=== PATIENT | female | born 1995 ===

== ENCOUNTER 2021-05-01 07:46 | Emergency (ER) | payer OTHER, SELFPAY ==
[2021-05-01 07:50] VITALS: BP 114/64; PULSE 79; RESP 18; TEMP 36.6; O2SAT 96; BMI 33.0
--- NOTE | 2021-05-01 08:06 | ED.BACK ---
HPI - Back Pain/Injury General Chief Complaint: Back Pain/Injury Stated Complaint: back pain Time Seen by Provider: 05/01/21 07:57 Source: patient Mode of arrival: ambulatory Limitations: no limitations History of Present Illness MD elicited complaint: back pain and other (neck pain) Pertinent past history: prior back pain and other (heavy lifting and repetitive job movements) Onset (ago): day(s) (yesterday at work) Timing: constant and progressively worsening Severity: severe Similar Symptoms Previously: Yes Quality: stabbing and spasming Location: thoracic spine (upper and cervical spine) Radiation: other (shoulders) Exacerbating factors: movement Relieving factors: none Context: other (woke up this way but felt it at work ) Associated symptoms: denies other symptoms Work related injury: Yes Related Data Previous Rx's Medication Instructions Recorded diazepam [Valium] 5 mg PO TID PRN #10 tab 05/01/21 ibuprofen 600 mg PO Q6H PRN #30 tab 05/01/21 lidocaine 1 patch TOPICAL DAILY PRN #10 ea 05/01/21 Allergies Allergy/AdvReac Type Severity Reaction Status Date / Time aluminum hydroxide Allergy Intermediate HIVES Unverified 07/24/20 16:11 [From MYLANTA] calcium carbonate Allergy Intermediate HIVES Unverified 07/24/20 16:11 [From MYLANTA] magnesium Allergy Intermediate HIVES Unverified 07/24/20 16:11 [From MILK OF MAGNESIA] magnesium hydroxide Allergy Intermediate HIVES Unverified 07/24/20 16:11 [From MILK OF MAGNESIA] simethicone [From MYLANTA] Allergy Intermediate HIVES Unverified 07/24/20 16:11 Milk of Magnesia Allergy Unknown Uncoded 03/09/16 00:00 mylanta Allergy Unknown hives Uncoded 09/12/12 00:00 Review of Systems Review of Systems: Constitutional : No Weight loss, No Fever, No Chills, ENT/Mouth : No Hearing loss, No Ear Pain, No Nasal Congestion, No Sinus Pain, No Hoarseness, No sore throat, No Rhinorrhea, No Swallowing Difficulty Cardiovascular : No Chest Pain, No SOB Respiratory : No Cough, No Dyspnea Gastrointestinal : No Nausea, No Vomiting, No Diarrhea, No abdominal Pain, No Hematochezia, No Melena Genitourinary : No Dysuria, No Urinary Frequency, No Hematuria, No Urinary Incontinence, Musculoskeletal : positive back pain, pos neck pain Skin : No Skin Lesions, No rash Neuro : No Weakness, No Numbness, No Paresthesias, no loss of bowel or bladder incontinence, no saddle anesthesia [facility] Past Medical History Attestation statement: The following information was validated with the patient. Medical History Neck pain Social History Social History Alcohol intake: current Patient Tobacco Use Status: Current everyday Tobacco user Use of substances other than those prescribed or required for medical reasons: No Advance Directives: Yes Advance Directives Information Provided: No Advance Directives on File: No Patient : No Physical Exam Vital Signs: Vital Signs: Last Vital Signs Temp 98 F 05/01/21 07:50 Pulse 79 05/01/21 07:50 Resp 18 05/01/21 07:50 BP 114/64 05/01/21 07:50 Pulse Ox 96 05/01/21 07:50 Body Mass Index 33.0 Appearance: Alert. Oriented X3. No acute distress. Eyes: Pupils equal, round and reactive to light. ENT: Pharynx normal. Neck: spasm in bilateral trapezius, neck is stiff distal NV intact CVS: Normal heart rate and rhythm. Pulses normal. Respiratory: No respiratory distress. Breath sounds normal. Abdomen: Soft and non-tender. Skin: Skin warm and dry. Normal skin color. Normal skin turgor. Extremities: No lower extremity edema. No calf ttp Neuro: Oriented X 3. No motor deficit. No sensory deficit. MDM - Back Pain/Injury MDM Narrative Medical decision making narrative: 25 yo female with prior neck pain works at [employer] here with neck pain and spasm after waking up, she is NV intact, no trauma doubt fracture at this time will need valium, IM toradol, lidocaine patches and work note, dispo per improvement Discharge Plan Discharge Clinical Impression: Acute neck pain, Trapezius muscle spasm Patient Disposition: Home, Self-Care Instructions: Muscle Spasm (ED) Additional Instructions: return to ED for any worsening symptoms or concerns Prescriptions: New lidocaine 4 % adhesive patch,medicated 1 patch topical DAILY PRN (Reason: pain) Qty: 10 RF: 0 ibuprofen 600 mg tablet 600 mg PO Q6H PRN (Reason: pain) Qty: 30 RF: 0 diazepam [Valium] 5 mg tablet 5 mg PO TID PRN (Reason: muscle spasm) Qty: 10 RF: 0 Referrals: Physician,None [Primary Care Provider] - 2 days (if not better follow up with PCP on Tuesday) Stand Alone Forms: Work/School Release
[2021-05-01] MEDS: Ketorolac Tromethamine 60 MG/2 ML VIAL IM (08:17)
[2021-05-01] MEDS: Lidocaine 4 % Patch ADH..PATCH 2 PATCH TRANSDERMA (08:23)
--- NOTE | 2021-05-01 08:28 | PC.NURSE ---
Patient refused valium due to her driving.
== END 2021-05-01 08:42 | disposition home or self-care (01) ==
PROVIDERS: Emergency Provider Emergency Medicine
DX: M54.2 Cervicalgia (principal); M62.838 Other muscle spasm
CPT/HCPCS: 96372; 99284; J1885

== ENCOUNTER 2021-06-02 21:43 | Emergency (ER) | payer OTHER, SELFPAY ==
[2021-06-02 22:07] VITALS: BP 99/73; PULSE 81; RESP 16; TEMP 36.7; O2SAT 98; BMI 33.0
--- NOTE | 2021-06-03 00:15 | ED_ITS ---
HPI - Nausea/Vomiting/Diarrhea General Chief complaint: Nausea/Vomiting/Diarrhea <LINDA Alberto Last Filed: 06/03/21 01:56> Stated complaint: vomitting <LINDA Alberto Last Filed: 06/03/21 01:56> Time Seen by Provider: 06/02/21 21:55 <LINDA Alberto Last Filed: 06/03/21 01:56> Source: patient and family <LINDA Alberto Last Filed: 06/03/21 01:56> Mode of arrival: ambulatory <LINDA Alberto Last Filed: 06/03/21 01:56> Limitations: no limitations <LINDA Alberto Last Filed: 06/03/21 01:56> History of Present Illness HPI Narrative: 25 y/o female with no medical history presents to the ER from home c/o a day of nausea, vomiting and watery diarrhea. She reports since 4 am she has been vomiting and having multiple episodes of diarrhea. Every time she eats she vomits. She denies fever, chills, sick contacts or possible food bourne illness. She reports epigastric burning and the last few times she vomited it was all bile acid. She denies chance of . Denies any blood in her vomit or stool. She denies chance of . <LINDA Alberto Last Filed: 06/03/21 01:56> MD elicited complaint: nausea, vomiting and diarrhea <LINDA Alberto Last Filed: 06/03/21 01:56> Onset (ago): day(s) (1) <LINDA Alberto Last Filed: 06/03/21 01:56> Description of vomiting: bilious <LINDA Alberto Last Filed: 06/03/21 01:56> Description of diarrhea: watery and loose <LINDA Alberto Last Filed: 06/03/21 01:56> Associated nausea: Yes <LINDA Alberto Last Filed: 06/03/21 01:56> Associated abdominal pain: Yes <LINDA Alberto Last Filed: 06/03/21 01:56> Location of pain: epigastric <LINDA Alberto Last Filed: 06/03/21 01:56> Pain consistency: intermittent <LINDA Alberto Last Filed: 06/03/21 01:56> Severity: moderate <LINDA Alberto Last Filed: 06/03/21 01:56> Quality: aching and other (burning) <LINDA Alberto Last Filed: 06/03/21 01:56> Exacerbating factors: eating and vomiting <LINDA Alberto Last Filed: 06/03/21 01:56> Relieving factors: none <LINDA Alberto Last Filed: 06/03/21 01:56> Associated symptoms: nausea/vomiting <LINDA Alberto Last Filed: 06/03/21 01:56> Related Data Home medications: Previous Rx's Medication Instructions Recorded diazepam [Valium] 5 mg PO TID PRN #10 tab 05/01/21 ibuprofen 600 mg PO Q6H PRN #30 tab 05/01/21 lidocaine 1 patch TOPICAL DAILY PRN #10 ea 05/01/21 ondansetron 4 mg PO Q8H PRN #7 tab 06/03/21 <LINDA Alberto Last Filed: 06/03/21 01:56> Allergies/Adverse reactions: Allergies Allergy/AdvReac Type Severity Reaction Status Date / Time aluminum hydroxide Allergy Intermediate HIVES Verified 06/02/21 22:13 [From MYLANTA] calcium carbonate Allergy Intermediate HIVES Verified 06/02/21 22:13 [From MYLANTA] magnesium Allergy Intermediate HIVES Verified 06/02/21 22:13 [From MILK OF MAGNESIA] magnesium hydroxide Allergy Intermediate HIVES Verified 06/02/21 22:13 [From MILK OF MAGNESIA] simethicone [From MYLANTA] Allergy Intermediate HIVES Verified 06/02/21 22:13 Milk of Magnesia Allergy Unknown Hives Uncoded 06/02/21 22:13 mylanta Allergy Unknown hives Uncoded 06/02/21 22:13 <LINDA Alberto Last Filed: 06/03/21 01:56> Review of Systems Review of Systems: Constitutional: No Fever, No Chills ENT/Mouth: No sore throat, No Rhinorrhea, No Swallowing Difficulty Eyes: No Eye Pain, No Swelling, No Redness Cardiovascular: No Chest Pain, No SOB, No Orthopnea, No Edema Respiratory: No Cough, No Sputum, No Wheezing, No dyspnea Gastrointestinal: + Nausea, + Vomiting, + Diarrhea, + abdominal Pain, No Hematochezia, No Melena Genitourinary: No Dysuria, No Urinary Frequency, No Hematuria Musculoskeletal: No joint pain, No Myalgias Skin: No Skin Lesions, No rash Neuro: No Weakness, No Numbness, No Dizziness, No Headache Psych: No Anxiety/Panic, No Depression Heme/Lymph: No Bruising, No Lymphadenopathy Endocrine: No Polyuria, No Polydipsia <LINDA Alberto - Last Filed: 06/03/21 01:56> Gastrointestinal: Gastrointestinal: Reports nausea <LINDA Alberto Last Filed: 06/03/21 01:56> [facility] Past Medical History Attestation statement: The following information was validated with the patient. <LINDA Alberto Last Filed: 06/03/21 01:56> Medical History: Medical History Back injury Neck pain Right foot injury <LINDA Alberto Last Filed: 06/03/21 01:56> Social History Social History: Social History Alcohol intake: current Patient Tobacco Use Status: Current everyday Tobacco user Advance Directives: No Advance Directives Information Provided: No Patient : No <LINDA Alberto Last Filed: 06/03/21 01:56> Physical Exam Vital Signs: Vital Signs: Last Vital Signs Temp 98.1 F 06/02/21 22:07 Pulse 81 06/02/21 22:07 Resp 18 06/03/21 01:34 BP 102/57 L 06/03/21 01:34 Pulse Ox 98 06/03/21 01:34 Body Mass Index 33.0 Appearance: Alert. Oriented X3. No acute distress. Eyes: Pupils equal, round and reactive to light. ENT: Pharynx normal. Neck: Normal inspection. Neck supple. CVS: Normal heart rate and rhythm. Pulses normal. Respiratory: No respiratory distress. Breath sounds normal. Abdomen: Soft with mild epigastric tenderness, no rebound or guarding. +BS x4 Skin: Skin warm and dry. Normal skin color. Normal skin turgor. No rashes. Extremities: No lower extremity edema. Neuro: Oriented X 3. No motor deficit. No sensory deficit. <LINDA Alberto - Last Filed: 06/03/21 01:56> Vital Signs: Last Vital Signs Temp 98.1 F 06/02/21 22:07 Pulse 81 06/02/21 22:07 Resp 18 06/03/21 01:34 BP 102/57 L 06/03/21 01:34 Pulse Ox 98 06/03/21 01:34 Body Mass Index 33.0 <Janis Bell MD - Last Filed: 06/03/21 02:41> Course Course Course Narrative: 25 y/o female presenting with 1 day of N/V/D and epigastric abdominal pain. No RLQ or RUQ tenderness, doubt acute appendicitis or cholecystitis. Cli nical presentation is most consistent with gastroenteritis. Will check basic labs, UA, utox, and Upreg. IVF and Zofran ordered. <LINDA Alberto - Last Filed: 06/03/21 01:56> Follow-up on urine studies to ensure patient did not have a contributing UTI or . Both were negative and patient was discharged home in stable condition. <Janis Bell MD - Last Filed: 06/03/21 02:41> Reevaluation(s) Reevaluation #1: WBC 11.2, likely reactive from vomiting. None since arrival to the ED. Patient feels significantly better after IVF and Zofran. She is now tolerating mily tani. UA and Upreg pending, once resulted will d/c home. patient and mom agree with plan. <LINDA Alberto - Last Filed: 06/03/21 01:56> MDM - Nausea/Vomiting/Diarrhea Lab Data Result diagrams: : 06/03/21 01:06 06/03/21 01:06 <LINDA Alberto - Last Filed: 06/03/21 01:56> Labs: Lab Results 06/03/21 06/03/21 06/03/21 Range/Units 01:06 01:06 02:28 WBC 11.2 H (4.8-10.8) X10*3/uL RBC 4.25 (4.20-5.50) X10*6/uL Hgb 13.3 (12.0-16.0) g/dl Hct 39.1 (37-47) % MCV 92.0 (80-98) fL MCH 31.3 (27.0-33.0) pg MCHC 34.0 (31.0-35.0) g/dl RDW 12.3 (11.0-16.0) % Plt Count 330 (160-400) X10*3/uL MPV 8.6 L (9.4-12.3) fL Immature Gran % (Auto) 0.4 (0.0-0.4) % Neut % (Auto) 79.8 H (45-73) % Lymph % (Auto) 13.6 L (20-40) % Schleicher % (Auto) 5.4 (2-11) % Eos % (Auto) 0.7 (0-4) % Baso % (Auto) 0.1 (0-2) % Lymph # (Auto) 1.5 (1.2-4.9) X10*3/uL Schleicher # (Auto) 0.6 (0.1-1.2) X10*3/uL Eos # (Auto) 0.1 (0.0-0.4) X10*3/uL Baso # (Auto) 0.0 (0.0-0.2) X10*3/uL Abs Immat Gran (auto) 0.04 H (0.00-0.03) X10*3/uL Absolute Neuts (auto) 9.0 H (2.0-8.3) X10*3/uL Absolute Nucleated RBC 0.000 (0.0-0.012) X10*3/uL Nucleated RBC % (auto) 0.0 (0.0-0.2) /100WBC Sodium 135 (135-145) mmol/L Potassium 3.9 (3.3-5.1) mmol/L Chloride 104 (96-108) mmol/L Carbon Dioxide 22 (22-29) mmol/L Anion Gap 13 (12-20) BUN 14 (9-16) mg/dL Creatinine 0.82 (0.5-1.4) mg/dL Estim Creat Clear Calc 98.3 Estimated GFR > 60 Random Glucose 96 (60-115) mg/dL Calcium 9.8 (8.4-10.2) mg/dL Total Bilirubin 0.7 (0.0-1.0) mg/dL Direct Bilirubin 0.2 (0.0-0.5) mg/dL AST 17 (5-31) U/L ALT 8 (0-31) U/L Alkaline Phosphatase 75 (39-117) U/L Total Protein 7.8 (6.5-8.0) g/dL Albumin 4.5 (3.5-5.0) g/dL Urine Color YELLOW Urine Appearance CLEAR Urine pH 6.0 (5.0-8.0) Ur Specific [place] >= 1.030 H (1.005-1.025) Urine Protein NEG (NEG-TRACE) MG/DL Urine Glucose (UA) NEG (NEG) MG/DL Urine Ketones 40 (NEG) MG/DL Urine Blood NEG (NEG) Urine Nitrite NEG (NEG) Ur Leukocyte Esterase NEG (NEG) Urine Test (NEGATIVE) 06/03/21 Range/Units 02:28 WBC (4.8-10.8) X10*3/uL RBC (4.20-5.50) X10*6/uL Hgb (12.0-16.0) g/dl Hct (37-47) % MCV (80-98) fL MCH (27.0-33.0) pg MCHC (31.0-35.0) g/dl RDW (11.0-16.0) % Plt Count (160-400) X10*3/uL MPV (9.4-12.3) fL Immature Gran % (Auto) (0.0-0.4) % Neut % (Auto) (45-73) % Lymph % (Auto) (20-40) % Schleicher % (Auto) (2-11) % Eos % (Auto) (0-4) % Baso % (Auto) (0-2) % Lymph # (Auto) (1.2-4.9) X10*3/uL Schleicher # (Auto) (0.1-1.2) X10*3/uL Eos # (Auto) (0.0-0.4) X10*3/uL Baso # (Auto) (0.0-0.2) X10*3/uL Abs Immat Gran (auto) (0.00-0.03) X10*3/uL Absolute Neuts (auto) (2.0-8.3) X10*3/uL Absolute Nucleated RBC (0.0-0.012) X10*3/uL Nucleated RBC % (auto) (0.0-0.2) /100WBC Sodium (135-145) mmol/L Potassium (3.3-5.1) mmol/L Chloride (96-108) mmol/L Carbon Dioxide (22-29) mmol/L Anion Gap (12-20) BUN (9-16) mg/dL Creatinine (0.5-1.4) mg/dL Estim Creat Clear Calc Estimated GFR Random Glucose (60-115) mg/dL Calcium (8.4-10.2) mg/dL Total Bilirubin (0.0-1.0) mg/dL Direct Bilirubin (0.0-0.5) mg/dL AST (5-31) U/L ALT (0-31) U/L Alkaline Phosphatase (39-117) U/L Total Protein (6.5-8.0) g/dL Albumin (3.5-5.0) g/dL Urine Color Urine Appearance Urine pH (5.0-8.0) Ur Specific [place] (1.005-1.025) Urine Protein (NEG-TRACE) MG/DL Urine Glucose (UA) (NEG) MG/DL Urine Ketones (NEG) MG/DL Urine Blood (NEG) Urine Nitrite (NEG) Ur Leukocyte Esterase (NEG) Urine Test NEGATIVE (NEGATIVE) <LINDA Alberto - Last Filed: 06/03/21 01:56> Lab Results 06/03/21 06/03/21 06/03/21 Range/Units 01:06 01:06 02:28 WBC 11.2 H (4.8-10.8) X10*3/uL RBC 4.25 (4.20-5.50) X10*6/uL Hgb 13.3 (12.0-16.0) g/dl Hct 39.1 (37-47) % MCV 92.0 (80-98) fL MCH 31.3 (27.0-33.0) pg MCHC 34.0 (31.0-35.0) g/dl RDW 12.3 (11.0-16.0) % Plt Count 330 (160-400) X10*3/uL MPV 8.6 L (9.4-12.3) fL Immature Gran % (Auto) 0.4 (0.0-0.4) % Neut % (Auto) 79.8 H (45-73) % Lymph % (Auto) 13.6 L (20-40) % Schleicher % (Auto) 5.4 (2-11) % Eos % (Auto) 0.7 (0-4) % Baso % (Auto) 0.1 (0-2) % Lymph # (Auto) 1.5 (1.2-4.9) X10*3/uL Schleicher # (Auto) 0.6 (0.1-1.2) X10*3/uL Eos # (Auto) 0.1 (0.0-0.4) X10*3/uL Baso # (Auto) 0.0 (0.0-0.2) X10*3/uL Abs Immat Gran (auto) 0.04 H (0.00-0.03) X10*3/uL Absolute Neuts (auto) 9.0 H (2.0-8.3) X10*3/uL Absolute Nucleated RBC 0.000 (0.0-0.012) X10*3/uL Nucleated RBC % (auto) 0.0 (0.0-0.2) /100WBC Sodium 135 (135-145) mmol/L Potassium 3.9 (3.3-5.1) mmol/L Chloride 104 (96-108) mmol/L Carbon Dioxide 22 (22-29) mmol/L Anion Gap 13 (12-20) BUN 14 (9-16) mg/dL Creatinine 0.82 (0.5-1.4) mg/dL Estim Creat Clear Calc 98.3 Estimated GFR > 60 Random Glucose 96 (60-115) mg/dL Calcium 9.8 (8.4-10.2) mg/dL Total Bilirubin 0.7 (0.0-1.0) mg/dL Direct Bilirubin 0.2 (0.0-0.5) mg/dL AST 17 (5-31) U/L ALT 8 (0-31) U/L Alkaline Phosphatase 75 (39-117) U/L Total Protein 7.8 (6.5-8.0) g/dL Albumin 4.5 (3.5-5.0) g/dL Urine Color YELLOW Urine Appearance CLEAR Urine pH 6.0 (5.0-8.0) Ur Specific [place] >= 1.030 H (1.005-1.025) Urine Protein NEG (NEG-TRACE) MG/DL Urine Glucose (UA) NEG (NEG) MG/DL Urine Ketones 40 (NEG) MG/DL Urine Blood NEG (NEG) Urine Nitrite NEG (NEG) Ur Leukocyte Esterase NEG (NEG) Urine Test (NEGATIVE) 06/03/21 Range/Units 02:28 WBC (4.8-10.8) X10*3/uL RBC (4.20-5.50) X10*6/uL Hgb (12.0-16.0) g/dl Hct (37-47) % MCV (80-98) fL MCH (27.0-33.0) pg MCHC (31.0-35.0) g/dl RDW (11.0-16.0) % Plt Count (160-400) X10*3/uL MPV (9.4-12.3) fL Immature Gran % (Auto) (0.0-0.4) % Neut % (Auto) (45-73) % Lymph % (Auto) (20-40) % Schleicher % (Auto) (2-11) % Eos % (Auto) (0-4) % Baso % (Auto) (0-2) % Lymph # (Auto) (1.2-4.9) X10*3/uL Schleicher # (Auto) (0.1-1.2) X10*3/uL Eos # (Auto) (0.0-0.4) X10*3/uL Baso # (Auto) (0.0-0.2) X10*3/uL Abs Immat Gran (auto) (0.00-0.03) X10*3/uL Absolute Neuts (auto) (2.0-8.3) X10*3/uL Absolute Nucleated RBC (0.0-0.012) X10*3/uL Nucleated RBC % (auto) (0.0-0.2) /100WBC Sodium (135-145) mmol/L Potassium (3.3-5.1) mmol/L Chloride (96-108) mmol/L Carbon Dioxide (22-29) mmol/L Anion Gap (12-20) BUN (9-16) mg/dL Creatinine (0.5-1.4) mg/dL Estim Creat Clear Calc Estimated GFR Random Glucose (60-115) mg/dL Calcium (8.4-10.2) mg/dL Total Bilirubin (0.0-1.0) mg/dL Direct Bilirubin (0.0-0.5) mg/dL AST (5-31) U/L ALT (0-31) U/L Alkaline Phosphatase (39-117) U/L Total Protein (6.5-8.0) g/dL Albumin (3.5-5.0) g/dL Urine Color Urine Appearance Urine pH (5.0-8.0) Ur Specific [place] (1.005-1.025) Urine Protein (NEG-TRACE) MG/DL Urine Glucose (UA) (NEG) MG/DL Urine Ketones (NEG) MG/DL Urine Blood (NEG) Urine Nitrite (NEG) Ur Leukocyte Esterase (NEG) Urine Test NEGATIVE (NEGATIVE) <Janis Bell MD - Last Filed: 06/03/21 02:41> Critical Care Time Critical Care Time Critical Care Time: No <LINDA Alberto - Last Filed: 06/03/21 01:56> Discharge Plan Discharge Clinical Impression: Gastroenteritis <LINDA Alberto - Last Filed: 06/03/21 01:56> Patient Disposition: Home, Self-Care <LINDA Alberto - Last Filed: 06/03/21 01:56> Instructions: Gastroenteritis (ED) <LINDA Alberto - Last Filed: 06/03/21 01:56> Additional Instructions: Your lab workup today was unremarkable. Your symptoms are most likely due to gastroenteritis. Take the prescribed medication as needed for nausea. Recommend trial of over the counter Pepto Bismol or Imodium for upset stomach and diarrhea. Stick to a bland diet while you are not feeling well. Follow up with your doctor as needed. If you develop new or worsening symptoms call 911 or come back to the ER for further evaluation. <LINDA Alberto - Last Filed: 06/03/21 01:56> Prescriptions: New ondansetron 4 mg tablet,disintegrating 4 mg PO Q8H PRN (Reason: nausea and vomiting) Qty: 7 RF: 0 No Action lidocaine 4 % adhesive patch,medicated 1 patch topical DAILY PRN (Reason: pain) Qty: 10 RF: 0 ibuprofen 600 mg tablet 600 mg PO Q6H PRN (Reason: pain) Qty: 30 RF: 0 diazepam [Valium] 5 mg tablet 5 mg PO TID PRN (Reason: muscle spasm) Qty: 10 RF: 0 <LINDA Alberto - Last Filed: 06/03/21 01:56> Referrals: Luann Gaming [Emergency Nurse] - 1 week <LINDA Alberto - Last Filed: 06/03/21 01:56>
[2021-06-03] MEDS: 0.9 % Sodium Chloride 1,000 ML 999 ML IVCONT (01:07)
[2021-06-03 01:14] LABS: MANUAL DIFF FLAG NO
[2021-06-03 01:15] LABS: Basophils Percent Auto 0.1 % (0-2); Eosinophils Absolute Auto 0.1 X10*3/uL (0.0-0.4); Eosinophils Percent Auto 0.7 % (0-4); Hematocrit 39.1 % (37-47); Hemoglobin 13.3 g/dl (12.0-16.0); Imm Gran Abs Auto 0.04 X10*3/uL (0.00-0.03); Imm Gran Pct Auto 0.4 % (0.0-0.4); Lymphocytes Absolute Auto 1.5 X10*3/uL (1.2-4.9); Lymphocytes Percent Auto 13.6 % (20-40); Mean Corpuscular Hemoglobin 31.3 pg (27.0-33.0); Mean Platelet Volume 8.6 fL (9.4-12.3); Monocytes Absolute Auto 0.6 X10*3/uL (0.1-1.2); Monocytes Percent Auto 5.4 % (2-11); Neutrophils Percent Auto 79.8 % (45-73); Platelet Count 330 X10*3/uL (160-400); Red Blood Count 4.25 X10*6/uL (4.20-5.50); Red Cell Distribution Width 12.3 % (11.0-16.0); White Blood Count 11.2 X10*3/uL (4.8-10.8)
[2021-06-03 01:34] VITALS: BP 102/57; RESP 18; O2SAT 98
[2021-06-03 01:39] LABS: Alanine Aminotransferase 8 U/L (0-31); Albumin Level 4.5 g/dL (3.5-5.0); Alkaline Phosphatase 75 U/L (39-117); Anion Gap 13 (12-20); Aspartate Amino Transferase 17 U/L (5-31); Bilirubin Direct 0.2 mg/dL (0.0-0.5); Bilirubin Total 0.7 mg/dL (0.0-1.0); Blood Urea Nitrogen 14 mg/dL (9-16); Calcium 9.8 mg/dL (8.4-10.2); Carbon Dioxide 22 mmol/L (22-29); Chloride 104 mmol/L (96-108); Creatinine Clr Calc Pharmacy 98.3; Estimated Glomerular Filt Rate > 60; Glucose Random 96 mg/dL (60-115); Potassium 3.9 mmol/L (3.3-5.1); Sodium 135 mmol/L (135-145); Total Protein 7.8 g/dL (6.5-8.0)
[2021-06-03 02:35] LABS: Appearance Urine CLEAR; Color Urine YELLOW; Glucose Urine UA NEG (NEG); Leukocyte Esterase Urine NEG (NEG); Nitrite Urine NEG (NEG); Specific Gravity - Urine >= 1.030 (1.005-1.025); Urine Blood NEG (NEG); Urine Ketones 40 MG/DL (NEG); Urine Protein NEG (NEG-TRACE)
[2021-06-03 02:37] LABS: UPreg QC Valid YES; Urine Pregnancy NEGATIVE (NEGATIVE)
[2021-06-03 05:50] LABS: Amphetamine Screen Urine Not Detected (Not Detect); Barbiturates, Urine Not Detected (Not Detect); Benzodiazepines Screen Urine Not Detected (Not Detect); Cannabinoid Screen Urine POSITIVE (Not Detect); Cocaine Screen Urine Not Detected (Not Detect); Opiate Screen Urine Not Detected (Not Detect); Phencyclidine Screen Urine Not Detected (Not Detect)
== END 2021-06-03 02:49 | disposition home or self-care (01) ==
PROVIDERS: Physician Assistant; Emergency Provider Student in an Organized Health Care Education/Training Program
DX: K52.9 Noninfective gastroenteritis and colitis, unspecified (principal); R11.2 Nausea with vomiting, unspecified; F17.210 Nicotine dependence, cigarettes, uncomplicated; F12.90 Cannabis use, unspecified, uncomplicated; Z79.899 Other long term (current) drug therapy
CPT/HCPCS: 36415; 80048; 80076; 80307; 81003; 81025; 85025; 96361; 96374; 99283; 99284; J2405

== ENCOUNTER 2021-08-17 10:20 | Outpatient (REF) | payer OTHER, SELFPAY ==
[2021-08-17 11:05] LABS: COVID-19 Test Negative (Negative)
== END 2021-08-17 10:21 | disposition home or self-care (01) ==
LOC: HO.LAB 10:20
PROVIDERS: Visit Provider Internal Medicine
DX: Z20.822 Contact with and (suspected) exposure to COVID-19 (principal)
CPT/HCPCS: 36415; 87635; C9803

== ENCOUNTER 2022-05-14 14:01 | Outpatient (REF) | payer OTHER, SELFPAY ==
--- NOTE | ~2022-05-14 | US_ITS ---
EXAMINATION: US DIAGNOSTIC ULTRASOUND BREAST, RIGHT US DIAGNOSTIC ULTRASOUND BREAST, LEFT CLINICAL INFORMATION: 18-year-old with cyclical pain bilateral breast. Clinical breast exam notes fullness right 11:00 and left 1:00-2:00. No palpable mass noted by patient. No nipple discharge. No prior breast imaging. COMPARISON: None. TECHNIQUE: Ultrasound of both breasts is targeted to the areas of patient and recent clinical concern. Patient is able to point areas of patient concern at time of imaging. Grayscale imaging and color Doppler are performed without and with harmonics. FINDINGS: Right: There is no suspicious finding. No solid mass or architectural abnormality or focal duct ectasia. There is an incidental cyst under 5 mm at 11:00 position 2 cm from nipple. There is an incidental benign intramammary node posterior 9:00 position with normal celine architecture and color flow and overall dimensions approximately 0.8 x 0.5 cm. An area of prior erythema shows minor linear avascular hypoechogenicity within the skin measuring just under 2 mm in thickness by 1.5 cm across. There is no internal or surrounding hyperemia on color Doppler. Patient notes drainage at this site approximately one year ago with no recent symptoms. There is no edema tracking in soft tissue planes. Left: There is no focal suspicious finding. There is no cystic or solid mass, architectural abnormality, duct ectasia, or edema in the soft tissue planes. Results are discussed with the patient at time of visit. US/US breast RT limited IMPRESSION: Right: -Tiny cyst 11:00 position under 5 mm. -Incidental intramammary node posterior 9:00 position under 1 cm. -Minor intradermal scarring at site of prior boil. No hyperemia. -No solid mass or architectural abnormality. Left: -No cystic or solid mass or architectural abnormality. ASSESSMENT: BI-RADS 2: Benign RECOMMENDATION: 1. Patient's breast pain may be managed based on the clinical impression. If there remains a clinical palpable concern, further evaluation may be considered with surgical consult. Decision to proceed with biopsy should be based on clinical grounds and degree of clinical concern. 2. Otherwise, routine annual screening mammography beginning age 40, or earlier as clinical risk factors warrant. This patient's information was entered into a reminder system with a target due date for their next breast imaging.
== END 2022-05-14 14:02 | disposition home or self-care (01) ==
LOC: HO.MAMMO 14:01
PROVIDERS: PCP Internal Medicine; Visit Provider Internal Medicine
DX: N63.11 Unspecified lump in the right breast, upper outer quadrant (principal); N63.21 Unspecified lump in the left breast, upper outer quadrant
CPT/HCPCS: 76642

== ENCOUNTER 2024-07-26 15:30 | Outpatient (REF) | payer OTHER, SELFPAY ==
[2024-07-27 14:23] LABS: Bacterial Vaginosis PCR NEGATIVE (Negative); Candida Group PCR NOT DETECTED (Not Detect); Candida glab krusei PCR NOT DETECTED (Not Detect); Trichomonas vaginalis PCR NOT DETECTED (Not Detect)
== END 2024-07-26 15:31 | disposition home or self-care (01) ==
LOC: HO.LNP 15:30
PROVIDERS: PCP Nurse Practitioner Family; Visit Provider Nurse Practitioner Family
DX: Z00.00 Encounter for general adult medical examination without abnormal findings (principal); N64.4 Mastodynia; N83.201 Unspecified ovarian cyst, right side; N83.202 Unspecified ovarian cyst, left side; M54.89 Other dorsalgia; G89.29 Other chronic pain; M79.10 Myalgia, unspecified site; F17.200 Nicotine dependence, unspecified, uncomplicated; R42 Dizziness and giddiness; Z23 Encounter for immunization; Z12.4 Encounter for screening for malignant neoplasm of cervix; Z76.89 Persons encountering health services in other specified circumstances; Z98.890 Other specified postprocedural states; Z20.2 Contact with and (suspected) exposure to infections with a predominantly sexual mode of transmission
CPT/HCPCS: 0352U; 90471; 90715; 96127

== ENCOUNTER 2024-07-26 15:30 | Outpatient (AMB) | payer OTHER, SELFPAY ==
--- NOTE | 2024-07-26 15:33 | A.OFFPC_ITS ---
Vital Signs 07/26/24 15:38 Height 5 ft Weight 172 lb 8 oz BMI 33.7 BP 118/66 Blood Pressure Location Lt brachial Position Sitting Respiration 14 Pulse 86 Pulse Source Pulse Oximeter Pulse Oximetry (%) 99 Oxygen Delivery Method Room Air Intake Visit Reasons: est care with [place] Intake Note: new patient to establish care Allergies aluminum hydroxide [From MYLANTA] Allergy (Intermediate, Verified 04/28/22 15:24) HIVES calcium carbonate [From MYLANTA] Allergy (Intermediate, Verified 04/28/22 15:24) HIVES magnesium [From MILK OF MAGNESIA] Allergy (Intermediate, Verified 04/28/22 15:24) HIVES magnesium hydroxide [From MILK OF MAGNESIA] Allergy (Intermediate, Verified 04/28/22 15:24) HIVES simethicone [From MYLANTA] Allergy (Intermediate, Verified 04/28/22 15:24) HIVES Milk of Magnesia Allergy (Unknown, Uncoded 04/28/22 15:24) Hives mylanta Allergy (Unknown, Uncoded 04/28/22 15:24) hives Tobacco use date assessed: 07/26/24 Dental Screening Dental Screen Date: 07/26/24 Did you have a dental visit in the last 12 months?: No Did you have a dental problem in the last 6 months where you did not have access to dental care?: Yes Was dental information given to patient?: No HPI HPI Comments History of Present Illness Details 28 y/o F with current tobacco use, chron ic myalgia, ovarian cysts bilat, recurrent BV s/p R leg fracture with surgical repair with hardware at age 19 Social: Works at [employer] Family hx: paternal aunt had breast cancer and mother's cousin did have breast cancer, cervical cancer, too Health Maintenance: ? PAP overdue ? Tdap given today, 07/26/24 Breast US 05/2022 WNL Specialists: Orthopedics Here today as a new patient to establish care. She is overdue for a Pap smear, reports excessive vaginal odor and then has a mild fishy smell, family history of cervical cancer, chronic breast pain Sexually active, no concern for STDs. Several at home remedies without improvement Chronic myalgia and back pain upper and lower since childhood. She fractured her right leg at age 19 and had surgery with hardware. Since this time she has chronic pain and swelling. She is requesting a letter of accommodation for her work. She stands for 8 hours and this causes worsening of edema and pain. She would also like to see Orthopedics to have a consult on whether or not she can have the hardware removed. She also reports that she has fainting episodes and happen from time to time, associated feeling dizzy. Exam Awake alert oriented, no acute distress Regular rate and rhythm Lung sounds clear to auscultation bilat RLE chronic deformity s/p surgery, + PP Mood and affect appropriate Plan Refer to showcase trimmer, refer to orthopedics, get labs done, BV swab obtained today, letter of accommodation provided for her today. RTO 3-4 weeks CPE, sooner PRN This note is constructed using voice recognition software. While every effort has been made to ensure accuracy in miter sawyer, still errors may have been included Sometimes, these errors may affect the content or meaning of the given sentence . Total time spent caring for the patient today was 50 minutes. This includes time spent before the visit reviewing the chart, time spent during the visit, and time spent after the visit on documentation [facility] Medical History (Updated 07/26/24 @ 17:29 by LETICIA Major-MARIEL) History of gastritis Right foot injury Back injury Neck pain Surgical History (Updated 07/26/24 @ 16:07 by LETICIA Major-MARIEL) History of surgery on lower extremity Family History (Updated 04/28/22 @ 15:30 by LETICIA Krishna) Mother No problems noted. Father No problems noted. Family/Other Substance use disorder Paternal Aunt Breast cancer Social History (Updated 07/26/24 @ 15:52 by Freddy Irene MA) Household Members: Spouse Housing: Apartment Are you a primary associate director career services to a significant other at home: No Do you presently have visiting nurse or other home services: No 75 years or older and lives alone: No Alcohol intake: current Alcohol intake frequency: holidays/special occasions only Alcohol type: beer, wine and hard liquor Patient Tobacco Use Status: Current everyday Tobacco user e-Cigarette/Vaping Use: Currently Using Second Hand Smoke Exposure: No Substance Use Type: Marijuana service: No Current occupational status: employed Current occupational exposures/hazards: No Cognitive needs: No Hearing needs: No Vision needs: No Questionnaire PHQ-9 Over the last 2 weeks, how often have you been bothered by any of the following problems? 1. Little interest or pleasure in doing things: not at all 2. Feeling down, depressed, or hopeless: not at all 3. Trouble falling or staying asleep, or sleeping too much: nearly every day 4. Feeling tired or having little energy: more than half the days 5. Poor appetite or overeating: not at all 6. Feeling bad about yourself - or that you are a failure or have let yourself or your family down: not at all 7. Trouble concentrating on things, such as reading the newspaper or watching television: not at all 8. Moving or speaking so slowly that other people could have noticed. Or the opposite - being so fidgety or restless that you have been moving around a lot more than usual: not at all 9. Thoughts that you would be better off or of hurting yourself in some way: not at all Total score: 5 63192 - PHQ-9 Billing: Yes Source: Developed by Drs. Armaan Waters, Catrina James, Vince Ponce and colleagues, with an educational steve from [employer]. Thrive Questionnaire Date Thrive assessed: 07/26/24 I am a: Patient What is your living situation today?: I have a steady place to live Within the past 12 months, did the food you bought not last and you didn't have the money to get more?: Never true Within the past 12 months, did you worry whether your food would run out before you got money to buy more?: Never true Do you have trouble paying for medicines?: No Do you have trouble getting transportation to medical appointments?: No Do you have trouble paying your heating and electricity bill?: No Do you have trouble taking care of your child, family member or friend?: No Do you have trouble with day-to-day activities such as bathing, preparing meals, shopping, managing finances, etc.?: No Are you currently unemployed and looking for a job?: No Are you interested in more education?: No Please select the resources that you would like help with: None THRIVE Score: 0 REGINA-7 AMB Questionnaire REGINA-7 Date REGINA - 7 assessed: 07/26/24 Feeling nervous, anxious, or on edge: 0 = Not at all Not being able to stop or control worryin = Not at all Worrying too much about different things: 0 = Not at all Trouble relaxin = Not at all Being so restless that it is hard to sit still: 0 = Not at all Becoming easily annoyed or irritable: 3 = Nearly every day Feeling afraid as if something awful might happen: 0 = Not at all Total REGINA-7 score (0-4 normal; 5-9 mild; 10-14 moderate; 15-21 severe): 3 Source: Developed by Drs. Armaan Waters, Catrina James, Vince Ponce and colleagues, with an educational steve from [employer]. REGINA-7 Assessment Billing REGINA-7 Assessment Tool: REGINA-7 Assessment 33495 Physical exam (Primary Care) Vital Signs: Last Vital Signs Pulse 86 07/26/24 15:38 Resp 14 07/26/24 15:38 BP 118/66 07/26/24 15:38 Pulse Ox 99 07/26/24 15:38 Oxygen Delivery Method Room Air 07/26/24 15:38 BMI result Body Mass Index 33.7 BMI Assessment/Plan discussion: High BMI High, discussed plan: lifestyle Tobacco/Smoking Status: Tobacco use Status Tobacco use date assessed 07/26/24 07/26/24 15:47 Patient Tobacco Use Status Current everyday Tobacco 07/26/24 15:52 e-Cigarette/Vaping Use Currently Using 07/26/24 15:52 Are you ready to quit: No Tobacco cessation counseling provided: Yes Items discussed: Other Relapse Prevention: discussed the importance of a supportive environment, discussed extending NRT, discussed negative mood or depression after quitting, weight gain after smoking is common and discussed dietary, exercise and/or lifestyle changes Number of minutes spent counselin CPT code: Less than 3 minutes PHQ-9: PHQ-9 Score PHQ-9: Total score 5 07/26/24 16:22 Thrive Assessment: Date of Thrive Assessment Date Thrive assessed 07/26/24 07/26/24 15:47 Immunizations Boostrix Tdap 2.5 Lf unit-8 mcg-5 Lf/0.5 mL intramuscular syringe Performing Provider: MARY Major Performing Location: [facility] Family Medicine Administered by: Salome Glass RN on 07/26/24 16:16 Dose Route Admin Location Dispensed Lot Number Expiration Date NDC Recruiting Intern 0.5 mL IM Left Deltoid 0.5 mL [id number] 08/15/26 68925-631-37 Clarity VIS Given Date VIS Provided VIS Publication Date 07/26/24 Single Vaccine 21 Eligibility Eligibility Date Funding Source Not [facility] Eligible 07/26/24 Private Assessment and Plan Assessment & Plan (1) Painful breasts: Code(s): N64.4 - Mastodynia (2) Cervical cancer screening: Code(s): Z12.4 - Encounter for screening for malignant neoplasm of cervix (3) Bilateral ovarian cysts: Code(s): N83.201 - Unspecified ovarian cyst, right side; N83.202 - Unspecified ovarian cyst, left side (4) Chronic back pain: Code(s): M54.9 - Dorsalgia, unspecified; G89.29 - Other chronic pain Qualifiers: Back pain location: back pain in other location Qualified Code(s): M54.89 - Other dorsalgia; G89.29 - Other chronic pain (5) Myalgia: Code(s): M79.10 - Myalgia, unspecified site (6) History of surgery on lower extremity: Comment: RLE x 2 surgeries, pt has 7 screws and 1 plate Code(s): Z98.890 - Other specified postprocedural states (7) Encounter to establish care: Code(s): Z76.89 - Persons encountering health services in other specified circumstances (8) Tobacco dependence with current use: Code(s): F17.200 - Nicotine dependence, unspecified, uncomplicated (9) Postural dizziness with near syncope: Code(s): R42 - Dizziness and giddiness; R55 - Syncope and collapse (10) Laboratory exam ordered as part of routine general medical examination: Code(s): Z00.00 - Encounter for general adult medical examination without abnormal findings Orders: Orders Complete Blood Count no Diff Today Z00.00 - Encounter for general adult medical examination without abnormal findings, Z11.3 - Encounter for screening for infections with a predominantly sexual mode of transmission Comprehensive Met. Panel Today Z00.00 - Encounter for general adult medical examination without abnormal findings, Z11.3 - Encounter for screening for infections with a predominantly sexual mode of transmission TSH reflex Free T4 Today Z00.00 - Encounter for general adult medical examination without abnormal findings, Z11.3 - Encounter for screening for infections with a predominantly sexual mode of transmission Vitamin B12 and Folate Today Z00.00 - Encounter for general adult medical examination without abnormal findings, Z11.3 - Encounter for screening for infections with a predominantly sexual mode of transmission IRON PROFILE Today Z00.00 - Encounter for general adult medical examination without abnormal findings, Z11.3 - Encounter for screening for infections with a predominantly sexual mode of transmission TDaP Immunization Today Z23 - Encounter for immunization Hemoglobin A1c Today Z00.00 - Encounter for general adult medical examination without abnormal findings, Z11.3 - Encounter for screening for infections with a predominantly sexual mode of transmission Microalbumin, Random (w Creat) Today Z00.00 - Encounter for general adult medical examination without abnormal findings, Z11.3 - Encounter for screening for infections with a predominantly sexual mode of transmission Vitamin D 25-OH Total Today Z00.00 - Encounter for general adult medical examination without abnormal findings, Z11.3 - Encounter for screening for infections with a predominantly sexual mode of transmission Bacterial Vaginosis Panel Today Z00.00 - Encounter for general adult medical examination without abnormal findings, Z11.3 - Encounter for screening for infections with a predominantly sexual mode of transmission Referrals [facility] Referral N63.10 - Unspecified lump in the right breast, unspecified quadrant, N63.20 - Unspecified lump in the left breast, unspecified quadrant, N64.4 - Mastodynia, N83.201 - Unspecified ovarian cyst, right side, N83.202 - Unspecified ovarian cyst, left side, Z12.4 - Encounter for screening for malignant neoplasm of cervix Pain Management Referral G89.29 - Other chronic pain, M54.9 - Dorsalgia, unspecified, M79.10 - Myalgia, unspecified site Orthopedics Referral Z98.890 - Other specified postprocedural states Patient Instructions: Walk-In Care (Urgent Care): We Make it Easy Walk-in for urgent medical issues such as: ? Seasonal Allergies ? Insect Bites ? Cough ? Diarrhea ? Acute Asthma Attacks ? Back, Knee or Joint Pain ? Ear Infection ? Fever without a Rash ? Headaches ? Nausea ? [employer] Eye, Rash or Skin Irritation ? Sore Throat ? Sports Physicals ? Vomiting Most insurances are accepted. Patients do not need to be part of the [facility] to seek care at the walk-in clinic. Locations [address] [place] [address] ? [phone] [facility] Walk-In Care in [place] provides services to ages 18 and over. Open Tuesday-Tuesday: 8 a.m. to 5 p.m. and Tuesday: 9 a.m. to 3 p.m.* *Hours may vary due to staffing availability. To confirm Walk-In Care hours in [place], please call [phone]. [address] [place] [address] ? [phone] [facility] Walk-In Care in [place] provides services to ages 12 and over. Open Tuesday-Tuesday: 8 a.m. to 5 p.m. Hours may vary due to staffing availability. To confirm Walk-In Care hours in [place], please call [phone]. LABORATORY SERVICES: [facility] Lab ? Primary Location [address] [place] [address] Tuesday through Tuesday 6:00 AM ? 5:00 PM Tuesday 7:00 AM ? 11:00 AM* [phone] The [facility] Lab is centrally located near the front entrance of the [facility] for easy outpatient access. Convenient parking is provided for outpatients. *Hours may vary due to staffing availability. To confirm Laboratory hours for any location, please call [phone]. Offsite Location For your convenience, we offer offsite laboratory draw stations at the following locations: [address] [place] [address] ? [address], [address] Tuesday through Tuesday 7:30 AM ? 1:00 PM* [phone] *Hours may vary due to staffing availability. To confirm Laboratory hours for any location, please call [phone]. [place] ? [address] Tuesday through Tuesday 6:00 AM ? 3:30 PM* Tuesday 6:30 AM ? 3 PM* [phone] *Hours may vary due to staffing availability. To confirm Laboratory hours for any location, please call [phone] [place] [address] Tuesday through Tuesday 7:30 AM ? 4:00 PM* [phone] *Hours may vary due to staffing availability. To confirm Laboratory hours for any location, please call [phone]. [address] [facility] Tuesday through 9:00 AM ? 4:00 PM* *Hours may vary due to staffing availability. To confirm Laboratory hours for any location, please call [phone]. Appointments are not necessary. Walk-ins are welcome. Like all the departments throughout the [facility], our Lab undergoes frequent reviews to ensure the quality and accuracy of test results, and our staff takes special pride in its status as a nationally accredited facility. Patient Portal: ONE PATIENT. ONE RECORD. BETTER CARE. [facility] has a fully integrated, cutting- edge mobile electronic health information system that has revolutionized the way we care for our patients and manage our organization. This system improves communication and coordination enabling us to provide safe, higher-quality care, and an overall positive experience for staff and patients. Our first priority, as always, is to deliver the highest quality care possible. The system is running in the background supporting that priority. This portal is for all [facility] and [facility] services and practices. If you are experiencing any technical difficulties with enrolling or logging into the Patient Portal please complete the [facility] Patient Portal Technical Support Form. [facility] and [facility] now offers a new secure on-line interactive tool for patients to review their health information ? Patient Portal. This interactive web portal will enable patients and their families to take an active role in their care by providing easy, secure access to their health information via the internet. The Patient Portal provides patients with instant access to their health information, including laboratory results, medications, allergies, demographic information, visit history, and more. In addition to managing their own care, parents and health care proxies with authorized consent will appreciate the ability to access the records of those individuals for whom they provide care. Please note: if you wish to gain access (Proxy) to another patient?s portal, you will be required to come to the Medical Records Department in person at [facility]. Both the patient giving proxy access and the proxy will need to provide photo identification and complete the appropriate authorization. The Patient Portal also allows track their appointments online. The [facility] Patient Portal also saves patients time by allowing them to submit updates to their demographic and contact information prior to their visits. Portal email notifications will also alert patients to any new activity on their portal, such as test results and new appointments. In order to initially enroll in the [facility] Patient Portal, you will need to enter some required information including the following: ? your [facility] Medical Record number ? your personal home email address ? name ? date of Please note: In order to enroll in the [facility] Patient Portal, we need to have your email address on file in your electronic medical record. The email address needs to be specific for one person (yourself) in order for your Portal enrollment to be successful. You can update your email address in person with our Registration staff when you are registering for a hospital visit. Otherwise, you will need to come to the Health Information Management (Medical Records) Department at [facility]. We are open from Tuesday ? Tuesday from 7:30 a.m. ? 4:30 p.m. You will be required to present a photo id. Once you have successfully enrolled in the Patient Portal, you will receive a one-time user id and password for the Portal, sent to your email address. This will allow you to log into the Patient Portal within 99 hrs and reset your own logon id and password, and define personal security questions. Once your permanent login and password have been set, you can log into the [facility] Patient Portal at any time via the blue button above or from the Portal Logon button on any page of the [facility] website. [facility] and [facility] encourage all of our patients to enroll in Patient Portal as it presents a valuable opportunity for patients and their families to actively participate in their care and stay healthy Welcome to [facility]. We look forward to working with you. Smoking Cessation How to Quit There are a lot of ways to quit smoking and many resources to help you. Family members, friends, and co-workers may be supportive or encouraging, but to be successful the desire and commitment to quit must be your own. Most people who have been able to successfully quit smoking made at least one unsuccessful attempt in the past. Try not to view past attempts to quit as failures, but rather as learning experiences. Stopping smoking or using smokeless tobacco is difficult, but anyone can do it. Know the symptoms to expect when you stop. Common symptoms include: ? An intense craving for nicotine ? Anxiety, tension, restlessness, frustration, or impatience ? Difficulty concentrating ? Drowsiness or trouble sleeping, as well as bad dreams and nightmares ? Drowsiness and trouble sleeping ? Headaches ? Increased appetite and weight gain ? Irritability or depression How severe your symptoms are depends on how long you smoked and how many cigarettes you smoked each day. Feel ready to quit? ? First and foremost, set a quit date and quit completely on that day. Before your quit date, you may begin reducing your cigarette use. But remember, there is no safe level of cigarette smoking. ? List the reasons why you want to quit. Include both short- and long-term benefits. ? Identify the times you are most likely to smoke. For example, do you tend to smoke when feeling stressed or down? When out at night with friends? While drinking coffee or alcohol? When bored? While driving? Right after a meal or sex? During a work break? While watching TV or playing cards? When you are with other smokers? ? Let all of your friends, family, and co-workers know of your plan to stop smoking and your quit date. Just being aware that they know what you're going through can be helpful, especially when you are grumpy. ? Get rid of all your cigarettes just before the quit date, and clean out anythi ng that smells like smoke, such as clothes and furniture. Make a plan about what you will do instead of smoking at those times when you are most likely to smoke. ? Be as specific as possible. For example, drink tea instead of coffee -- tea may not trigger the desire for a cigarette. Or, take a walk when you feel stressed. ? Remove ashtrays and cigarettes from the car. Place pretzels or hard candies there instead. Pretend-smoke with a straw. ? Find activities that focus your hands and mind but are not taxing or fattening. Computer games, solitaire, knitting, sewing, and crossword puzzles may help. ? If you normally smoke after eating, find other ways to end a meal. Play a tape or CD, eat a piece of fruit, get up and make a phone call, or take a walk (a good distraction that also barbosa calor ies). Make other changes in your lifestyle. ? Change your daily schedule and habits. Eat at different times or eat several small meals instead of three large ones. Sit in a different chair or even a different room. ? Satisfy your oral habits by eating celery or other low-calorie snack, chewing sugarless gum, or sucking on a cinnamon stick. ? Go to public places and restaurants where smoking is prohibited or restricted. ? Eat regular meals and don't eat too much candy or sweet things. ? Get more exercise. Take walks or ride a bike. Exercise helps relieve the urge to smoke. Set short-term quitting goals and reward yourself when you meet them. ? Every day, put the money you normally spend on cigarettes in a jar. Then buy something pleasurable after a period of time. ? Try not to think about all the days ahead you will need to avoid smoking. Take it one day at a time. ? Even one puff or one cigarette will make your desire for more cigarettes even stronger. However, it is normal to make mistakes. So even if you have one cigarette, you don't need to take the next one. Other tips to help you quit smoking and stick to it: ? Enroll in a smoking cessation program (hospitals, health departments, community centers, and work sites often offer programs). Learn about self-hypnosis or other techniques. ? Ask your health care provider about prescription medications that are safe and appropriate for you. ? Find out about nicotine patches, gum, and sprays. The [place] [employer]'s web site -- www.cancer.org -- is an excellent resource for smokers who are trying to quit, and the [employer] [place] [employer] can help some smokers kick the habit. Above all, don't get discouraged if you aren't able to quit smoking the first time. Nicotine addiction is a hard habit to break. Try something different next time. Develop new strategies, and try again. Many people take several attempts to finally kick the habit. Coding Level of Care Code New Pt Level 4 (74198) Complex EM visit Add On G2211 Diagnoses Painful breasts N64.4 Cervical cancer screening Z12.4 Bilateral ovarian cysts N83.201; N83.202 Other chronic back pain M54.89; G89.29 Back pain location: back pain in other location Myalgia M79.10 History of surgery on lower extremity Z98.890 Encounter to establish care Z76.89 Tobacco dependence with current use F17.200 Postural dizziness with near syncope R42; R55 Laboratory exam ordered as part of routine general medical examination Z00.00 Additional Codes REGINA-7 Assessment Billing - REGINA-7 Assessment Tool: REGINA-7 Assessment [id number] ([id number])
[2024-07-26 15:38] VITALS: BP 118/66; PULSE 86; RESP 14; O2SAT 99; BMI 33.7
== END 2024-07-26 16:26 | disposition home or self-care (01) ==
PROVIDERS: PCP Nurse Practitioner Family; Visit Provider Nurse Practitioner Family
DX: N64.4 Mastodynia (principal); Z12.4 Encounter for screening for malignant neoplasm of cervix; N83.201 Unspecified ovarian cyst, right side; N83.202 Unspecified ovarian cyst, left side; M54.89 Other dorsalgia; G89.29 Other chronic pain; M79.10 Myalgia, unspecified site; Z98.890 Other specified postprocedural states; Z76.89 Persons encountering health services in other specified circumstances; F17.200 Nicotine dependence, unspecified, uncomplicated; R42 Dizziness and giddiness; R55 Syncope and collapse; Z00.00 Encounter for general adult medical examination without abnormal findings; Z23 Encounter for immunization

== ENCOUNTER 2024-07-27 15:14 | Outpatient (REF) | payer OTHER, SELFPAY ==
[2024-07-27 16:16] LABS: Hematocrit 35.7 % (37.0-47.0); Hemoglobin 12.2 g/dl (12.0-16.0); Mean Corpuscular HGB Conc 34.2 g/dl (31.0-35.0); Mean Corpuscular Hemoglobin 31.1 pg (27.0-33.0); Mean Corpuscular Volume 91.1 fL (80.0-98.0); Mean Platelet Volume 8.7 fL (9.4-12.3); Platelet Count 325 X10*3/uL (160-400); Red Blood Count 3.92 X10*6/uL (4.20-5.50); Red Cell Distribution Width 12.5 % (11.0-16.0); White Blood Count 8.4 X10*3/uL (4.8-10.8)
[2024-07-27 16:37] LABS: Estimated Average Glucose 100 mg/dL; Hemoglobin A1c % 5.1 % (<6.0)
[2024-07-27 17:10] LABS: Microalbum/Creatinine Ratio Ur 7.6 ug/mg cr (<30)
[2024-07-27 17:20] LABS: Alanine Aminotransferase 10 U/L (0-31); Albumin Level 4.2 g/dL (3.5-5.0); Alkaline Phosphatase 58 U/L (39-117); Anion Gap 10 (12-20); Aspartate Amino Transferase 18 U/L (5-31); Bilirubin Total 0.4 mg/dL (0.0-1.0); Blood Urea Nitrogen 19 mg/dL (9-16); Carbon Dioxide 26 mmol/L (22-29); Chloride 107 mmol/L (96-108); Estimated Glomerular Filt Rate > 60; Glucose Random 78 mg/dL (60-115); Iron 95 mcg/dL (30-160); Percent Iron Saturation 38 % (15-50); Potassium 3.9 mmol/L (3.3-5.1); Sodium 139 mmol/L (135-145); Total Iron Binding Capacity 252 mcg/dL (228-428); Total Protein 7.3 g/dL (6.5-8.0); Unsaturated Iron Binding 157 ug/dL
[2024-07-27 17:37] LABS: TSH reflex Free T4 0.73 uIU/mL (0.32-4.0); Vitamin D 25-OH Total 16.7 ng/mL (>30)
[2024-07-27 17:48] LABS: Folate 11.2 ng/mL (> or = 4.0); Vitamin B12 605 pg/mL (200-900)
== END 2024-07-27 15:15 | disposition home or self-care (01) ==
LOC: HO.HMGCLDS 15:14
PROVIDERS: PCP Nurse Practitioner Family; Visit Provider Nurse Practitioner Family
DX: Z00.00 Encounter for general adult medical examination without abnormal findings (principal); Z20.2 Contact with and (suspected) exposure to infections with a predominantly sexual mode of transmission
CPT/HCPCS: 36415; 80053; 82043; 82306; 82570; 82607; 82746; 83036; 83540; 84443; 85027

== ENCOUNTER 2024-08-22 15:22 | Outpatient (AMB) | payer OTHER, SELFPAY ==
--- NOTE | 2024-08-22 15:27 | MHC.PC.OV ---
Vital Signs 08/22/24 15:35 Height 5 ft Weight 176 lb 2 oz BMI 34.4 BP 96/64 Blood Pressure Location Rt brachial Position Sitting Respiration 12 Pulse 71 Pulse Source Pulse Oximeter Pulse Oximetry (%) 99 Oxygen Delivery Method Room Air Intake Visit Reasons: cpe Intake Note: Physical. Never received BV results. Layout Operator Required: No Allergies aluminum hydroxide [From MYLANTA] Allergy (Intermediate, Verified 08/22/24 15:29) HIVES calcium carbonate [From MYLANTA] Allergy (Intermediate, Verified 08/22/24 15:29) HIVES magnesium [From MILK OF MAGNESIA] Allergy (Intermediate, Verified 08/22/24 15:29) HIVES magnesium hydroxide [From MILK OF MAGNESIA] Allergy (Intermediate, Verified 08/22/24 15:29) HIVES simethicone [From MYLANTA] Allergy (Intermediate, Verified 08/22/24 15:29) HIVES Milk of Magnesia Allergy (Unknown, Uncoded 08/22/24 15:29) Hives mylanta Allergy (Unknown, Uncoded 08/22/24 15:29) hives Medication List - Last Reconciled 08/22/24 by Zenaida Finch PA-C No Known Home Meds Tobacco use date assessed: 07/26/24 Dental Screening Dental Screen Date: 07/26/24 HPI cpe HPI Details Patient is a 29-year-old female who presents today for a physical exam. She is relatively new here. Her last visit she did complain of some vaginal odor and ovarian cysts and was referred to agriculture engineer. She also complained of breast pain and was referred. She states that her breasts pain only seems to cycle during her menses. She has had 2 mammograms and ultrasounds and she states that everything looks normal. She is not very worried about this but does have a family history of breast cancer on her paternal side. She says that she is not interested in genetic testing and she does not think that anyone in her family has had genetic testing. She states that her cousins on her mom's side have had ovarian cancer. She states that they are like 2nd and 3rd cousins and she does not remember everybody's name and who has had what. She does not know if anyone has had genetic testing in general. She tells me that she will look to get some information but overall ?does not care ?. She states that if she is going to get something she will accept it. She does not want to deal with the stress of worrying in between testing. She did have labs drawn at her visit as well and her vitamin-D did come back as low. Fam hx: breast cancer in paternal grandmother, paternal aunt (40s) Maternal cousins x 3 have/had ovarian PFSH Medical History (Updated 08/22/24 @ 15:53 by Zenaida Finch PA-C) History of gastritis Right foot injury Back injury Neck pain Surgical History (Updated 07/26/24 @ 16:07 by LETICIA Major-) History of surgery on lower extremity Family History (Updated 04/28/22 @ 15:30 by LETICIA Krishna) Mother No problems noted. Father No problems noted. Family/Other Substance use disorder Paternal Aunt Breast cancer Social History (Updated 07/26/24 @ 15:52 by Freddy Irene MA) Household Members: Spouse Housing: Apartment Are you a primary professional healthcare representative to a significant other at home: No Do you presently have visiting nurse or other home services: No 75 years or older and lives alone: No Alcohol intake: current Alcohol intake frequency: holidays/special occasions only Alcohol type: beer, wine and hard liquor Patient Tobacco Use Status: Current everyday Tobacco user Tobacco use type: Cigarette Cigarette Packs Per Day: 1 e-Cigarette/Vaping Use: Currently Using Second Hand Smoke Exposure: No Substance Use Type: Marijuana service: No Current occupational status: employed Current occupational exposures/hazards: No Cognitive needs: No Hearing needs: No Vision needs: No Questionnaire Thrive Questionnaire Date Thrive assessed: 07/26/24 I am a: Patient What is your living situation today?: I choose not to answer this question Within the past 12 months, did the food you bought not last and you didn't have the money to get more?: I choose not to answer this question Within the past 12 months, did you worry whether your food would run out before you got money to buy more?: I choose not to answer this question Do you have trouble paying for medicines?: I choose not to answer this question Do you have trouble getting transportation to medical appointments?: I choose not to answer this question Do you have trouble paying your heating and electricity bill?: I choose not to answer this question Do you have trouble taking care of your child, family member or friend?: I choose not to answer this question Do you have trouble with day-to-day activities such as bathing, preparing meals, shopping, managing finances, etc.?: I choose not to answer this question Are you currently unemployed and looking for a job?: I choose not to answer this question Are you interested in more education?: I choose not to answer this question Please select the resources that you would like help with: None Currently or been in a relationship where the following occur: I choose not to answer THRIVE Score: 0 AUDIT C Alcohol Use Questionnaire (AUDIT-C) 1. How often do you have a drink containing alcohol?: Never Total Score: 0 REGINA-7 AMB Questionnaire REGINA-7 Date REGINA - 7 assessed: 07/26/24 Feeling nervous, anxious, or on edge: 0 = Not at all Not being able to stop or control worryin = Not at all Worrying too much about different things: 0 = Not at all Trouble relaxin = Not at all Being so restless that it is hard to sit still: 0 = Not at all Becoming easily annoyed or irritable: 0 = Not at all Feeling afraid as if something awful might happen: 0 = Not at all Total REGINA-7 score (0-4 normal; 5-9 mild; 10-14 moderate; 15-21 severe): 0 Source: Developed by Drs. Armaan Waters, Catrina James, Vince Ponce and colleagues, with an educational steve from [employer]. Physical exam (Primary Care) Vital Signs: Last Vital Signs Pulse 71 08/22/24 15:35 Resp 12 08/22/24 15:35 BP 96/64 08/22/24 15:35 Pulse Ox 99 08/22/24 15:35 Oxygen Delivery Method Room Air 08/22/24 15:35 BMI result Body Mass Index 34.4 Tobacco/Smoking Status: Tobacco use Status Tobacco use date assessed 07/26/24 08/22/24 15:30 Patient Tobacco Use Status Current everyday Tobacco 08/22/24 15:30 Tobacco use type Cigarette 08/22/24 15:30 e-Cigarette/Vaping Use Currently Using 08/22/24 15:30 Thrive Assessment: Date of Thrive Assessment Date Thrive assessed 07/26/24 08/22/24 15:30 Currently or been in a relationship where the following occur: I choose not to answer Const Orientation/consciousness: patient oriented x3 HENMT Ears: hearing grossly normal bilaterally and TM's normal bilaterally General nose exam: No nasal polyps present Face and sinus: Yes sinuses nontender Mouth: Normal oral and palatal mucosa present Eyes Pupils: Equal, round and reactive pupils present EOM: EOMs intact bilaterally Neck Neck: Yes full ROM and Yes no lymphadenopathy Thyroid: Thyroid normal Chest Chest palpation & inspection: normal inspection of the chest Resp Auscultation: clear to auscultation bilaterally Cardio Rate: regular rate Rhythm: regular rhythm Heart sounds: S1 normal heart sound present and S2 normal heart sound present Peripheral pulses: Peripheral pulses 2+ throughout GI Other: Soft, nontender Auscultation: normal bowel sounds Rectal Exam - Female: deferred General: Yes no CVA tenderness Back/Spine/Pelvis Other: Nontender Back: no CVA tenderness Skin General skin exam: no rashes or lesions noted Neuro General: patient oriented x3, gait normal, CN's II-XI intact bilaterally and deep tendon reflexes 2+ bilaterally Cranial nerves: Yes Equal, round and reactive pupils present Motor exam (neuro): 5/5 motor strength present throughout Sensory Exam: double simultaneous stimulation for sensation normal Coordination: voqmvr-vh-[id number] test normal and Romberg test negative Extrem General: Yes normal to inspection and Yes full ROM Psych Affect: normal affect Attitude: cooperative Thought process: Normal thought process present Thought content: Normal thought content present Insight: Good insight present (Psych) Judgement: Good judgement present (Psych) Results Reviewed Results Reviewed: Laboratory Tests 07/26/24 07/27/24 07/27/24 15:30 15:17 15:25 WBC 8.4 RBC 3.92 L Hgb 12.2 Hct 35.7 L Plt Count 325 Sodium 139 Potassium 3.9 Chloride 107 Carbon Dioxide 26 Anion Gap 10 L BUN 19 H Creatinine 0.89 Estimated GFR > 60 Hemoglobin A1c % 5.1 Iron 95 AST 18 ALT 10 Alkaline Phosphatase 58 Vitamin B12 605 25-OH Vitamin D Total 16.7 L Folate 11.2 TSH 0.73 Microalb/Creat Ratio 7.6 T. vaginalis (PCR) NOT DETECTED Bact Vaginosis (PCR) NEGATIVE C. krusei/glabrata (PCR) NOT DETECTED Geovanna group (PCR) NOT DETECTED Coding Level of Care Code Est Pt Prev Care 18-39y(63147) Diagnoses Routine general medical examination at a health care facility Z00.00 Painful breasts N64.4 Family hx-breast malignancy Z80.3 Family hx of ovarian malignancy Z80.41 Assessment & Plan Assessment & Plan (1) Routine general medical examination at a health care facility: Code(s): Z00.00 - Encounter for general adult medical examination without abnormal findings Plan: Health maintenance reviewed. Labs reviewed. Cholesterol ordered. (2) Painful breasts: Code(s): N64.4 - Mastodynia Category: Medical Plan: She has already been referred to agriculture engineer. Does not want to see the breast center. States that it seems cyclical. Advised her to limit caffeine (3) Family hx-breast malignancy: Code(s): Z80.3 - Family history of malignant neoplasm of breast Category: Medical Plan: She will find out more about her family history and let me know about a referral to genetics. She at this time does not want anything anyways. (4) Family hx of ovarian malignancy: Code(s): Z80.41 - Family history of malignant neoplasm of ovary Category: Medical Plan: As above Orders: Orders CT NG by PCR Today Z20.2 - Contact with and (suspected) exposure to infections with a predominantly sexual mode of transmission Lipid Panel Today Z00.00 - Encounter for general adult medical examination without abnormal findings Medications: New cholecalciferol (vitamin D3) 50 mcg PO DAILY 90 tabs 3RF
[2024-08-22 15:35] VITALS: BP 96/64; PULSE 71; RESP 12; O2SAT 99; BMI 34.4
== END 2024-08-22 16:14 | disposition home or self-care (01) ==
PROVIDERS: PCP Nurse Practitioner Family; Visit Provider Physician Assistant
DX: Z00.00 Encounter for general adult medical examination without abnormal findings (principal); N64.4 Mastodynia; Z80.3 Family history of malignant neoplasm of breast; Z80.41 Family history of malignant neoplasm of ovary

== ENCOUNTER 2024-08-23 12:29 | Outpatient (REF) | payer OTHER, SELFPAY | END 2024-08-23 12:30 | disposition home or self-care (01) | LOC: HO.HOSX 12:29 | PROVIDERS: Visit Provider Orthopaedic Surgery | DX: Z13.89 Encounter for screening for other disorder (principal) ==

== ENCOUNTER → 2024-09-25 16:47 | Outpatient (BNVA) | payer OTHER, SELFPAY | PROVIDERS: PCP Nurse Practitioner Family; Visit Provider Nurse Practitioner Family | DX: Z02.9 Encounter for administrative examinations, unspecified (principal) ==

== ENCOUNTER 2025-06-27 12:30 | Outpatient (REF) | payer OTHER, SELFPAY ==
[2025-06-27 14:39] LABS: Hemoglobin A1C 107.1844 umol/L
[2025-06-27 15:02] LABS: Alanine Aminotransferase 25 U/L (0-31); Albumin Level 4.5 g/dL (3.5-5.0); Alkaline Phosphatase 63 U/L (39-117); Anion Gap 11 (12-20); Aspartate Amino Transferase 36 U/L (5-31); Blood Urea Nitrogen 20 mg/dL (9-16); Calcium 8.9 mg/dL (8.4-10.2); Carbon Dioxide 25 mmol/L (22-29); Chloride 107 mmol/L (96-108); Cholesterol 187 mg/dL (<200); Estimated Glomerular Filt Rate > 60; HDL Cholesterol 64 mg/dL (>40); Potassium 3.9 mmol/L (3.3-5.1); Sodium 139 mmol/L (135-145); Total Protein 7.5 g/dL (6.5-8.0); Triglycerides 58 mg/dL (<150)
== END 2025-06-27 12:31 | disposition home or self-care (01) ==
LOC: HO.WFDLDS 12:30
PROVIDERS: PCP Physician Assistant; Visit Provider Nurse Practitioner Family
DX: Z00.00 Encounter for general adult medical examination without abnormal findings (principal); E55.9 Vitamin D deficiency, unspecified; D50.9 Iron deficiency anemia, unspecified; M54.89 Other dorsalgia; G89.29 Other chronic pain; E66.9 Obesity, unspecified; F17.210 Nicotine dependence, cigarettes, uncomplicated; Z80.3 Family history of malignant neoplasm of breast; Z80.41 Family history of malignant neoplasm of ovary; Z68.36 Body mass index [BMI] 36.0-36.9, adult
CPT/HCPCS: 36415; 80053; 80061; 83036; 96127

== ENCOUNTER 2025-06-27 12:30 | Outpatient (AMB) | payer OTHER, SELFPAY ==
--- NOTE | 2025-06-27 12:33 | MHC.PC.OV ---
Vital Signs 06/27/25 12:36 Height 5 ft Weight 188 lb 6 oz BMI 36.8 BP 98/66 Blood Pressure Location Lt brachial Position Sitting Respiration 12 Pulse 53 Pulse Source Pulse Oximeter Temp 97.1 F Temp Source Oral Pulse Oximetry (%) 100 Oxygen Delivery Method Room Air Intake Visit Reasons: she needs a annual for her job Intake Note: CPE Litigation Legal Assistant Required: No Allergies aluminum hydroxide (From MYLANTA) Allergy (Intermediate, Verified 06/27/25 12:43) HIVES calcium carbonate (From MYLANTA) Allergy (Intermediate, Verified 06/27/25 12:43) HIVES magnesium (From MILK OF MAGNESIA) Allergy (Intermediate, Verified 06/27/25 12:43) HIVES magnesium hydroxide (From MILK OF MAGNESIA) Allergy (Intermediate, Verified 06/27/25 12:43) HIVES simethicone (From MYLANTA) Allergy (Intermediate, Verified 06/27/25 12:43) HIVES Milk of Magnesia Allergy (Unknown, Uncoded 06/27/25 12:33) Hives mylanta Allergy (Unknown, Uncoded 06/27/25 12:33) hives Medication List - Last Reconciled 06/27/25 by Jessica Sapp, OXYGEN THERAPY TECHNICIAN- cholecalciferol (vitamin D3) 50 mcg PO DAILY Tobacco use date assessed: 06/27/25 Dental Screening Dental Screen Date: 06/27/25 Did you have a dental visit in the last 12 months?: No Did you have a dental problem in the last 6 months where you did not have access to dental care?: No Was dental information given to patient?: No HPI HPI Comments History of Present Illness Details 29 y/o F with current tobacco use, chronic myalgia, ovarian cysts bilat, recurrent BV, anemia, FHx ovarian, breast and cervical ca s/p R leg fracture with surgical repair with hardware at age 19 Social: Works at [employer] hx: paternal aunt had breast cancer and mother's cousin did have breast cancer, cervical cancer, too Health Maintenance: ? PAP declined ? Tdap 07/26/24 Breast US 05/2022 WNL Specialists: None History of Present Illness - The patient is a 29-year-old female presenting for CPE - C/o hormonal acne. - Acne worsens pre-menstruation. - No acne in teens or early 20s. - Hx of anemia, not taking MVI with Iron - declined - Vit D def - not taking supplement, declined. - Declines fu with LASER ENGINEER even w/ family hx I dont care - BMI > 35 - Did not follow up w/ ortho as did not like planned intervention - Current smoker Health Maintenance - Discussed the importance of diabetes and cholesterol screening - Smoking cessation acknowledged as a goal. Review of Systems - Integumentary: Reports hormonal acne, worsens pre-menstruation. - Respiratory: Denies sob, cough, wheezing - Miscellaneous: No complaints. Physical Exam General: Well developed, well nourished, in no acute distress. Appears stated age. Head: Normocephalic, atraumatic. Eyes: Pupils are equal, round and reactive to light and accommodation. Conjunctivae are clear. Vision grossly normal. Ears: TMs clear AU, EACS WNL Nose: Patent, without discharge.Mouth: There are no ulcers or lesions noted. No inflammation, no post nasal drip, no plaques nor exudates. Neck: Supple, no adenopathy or thyromegaly. Breast: Edu on SBE Lungs: Clear to auscultation bilaterally. No rales, rhonchi or wheeze noted. Good air flow in all antonio. Heart: Regular rate and rhythm. No murmurs, click, rubs or gallops are noted. Abdomen: Bowel sounds present in all quadrants. The abdomen is soft, nontender, with no masses or organomegaly noted. No hernias are noted. : Deferred. Reviewed recommendations for routine LASER ENGINEER Musculoskeletal: Joints are nontender, without swelling, redness, or effusions. Range of motion is observed to be normal. Pulses: Peripheral pulses are equal and palpable bilaterally. Extremities: No clubbing, cyanosis nor edema is noted. Neurologic: Gait and station normal. Cranial Nerves 2-12 intact. Motor strength grossly symmetrical and intact. No sensory loss. Balance normal. Skin: No rashes, ulcers, or lesions noted. Turgor is good. Skin color is good. Hair and nails are without abnormalities. Psych: Normal eye contact, affect and mood appropriate, and normal interactions. Patient is alert and appropriate to context. Results Pending Discussion Notes I discussed with the patient her hormonal acne and explored potential treatment options, including topical clindamycin, which could help manage acne flare-ups. We reviewed the risk associated with using control given her smoking status, specifically concerning the risk of blood clots. The conversation touched upon the importance of vitamin D and iron supplements, especially given her history of deficiency and anemia. I advised on smoking cessation to improve overall health, and discussed the potential benefits of cholesterol and diabetes screening as a proactive measure. The consent process for topical antibiotic therapy was undertaken with her, noting the sensitivity to sun exposure and the requirement to rinse in the morning to prevent further skin complications. Patient was given time to ask questions. All questions were answered to their satisfaction. Assessment and Plan 1. Hormonal acne - Clindamycin topical recommended. - Oral contraceptive avoided due to smoking. 2. Anemia - Multivitamin with iron advised, declined. 3. Vitamin D deficiency - Encouraged D supplement, declined 4. Tobacco use - Smoking cessation discussion. 5. Obesity - Lifestyle changes recommended. Patient Instructions - Begin using the prescribed clindamycin ointment at night. - Do not smoke, seek support for quitting. - Take a daily multivitamin with iron. - Return for cholesterol and diabetes screening. - Consider rechecking vitamin D status. - Avoid sun exposure with clindamycin use; rinse skin in the morning. 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 Consent Patient was informed and verbally consented to the use of an ambient scribe for clinic note documentation during this visit. [facility] Medical History (Updated 06/27/25 @ 13:06 by LETICIA Major-MARIEL) Back injury History of gastritis Neck pain Right foot injury Surgical History (Updated 07/26/24 @ 16:07 by LETICIA Major-MARIEL) History of surgery on lower extremity Family History (Updated 04/28/22 @ 15:30 by LETICIA Krishna) Mother No problems noted. Father No problems noted. Family/Other Substance use disorder Paternal Aunt Breast cancer Social History (Updated 07/26/24 @ 15:52 by Freddy Irene MA) Household Members: Spouse Housing: Apartment Are you a primary daycare provider to a significant other at home: No Do you presently have visiting nurse or other home services: No 75 years or older and lives alone: No Alcohol intake: current Alcohol intake frequency: holidays/special occasions only Alcohol type: beer, wine and hard liquor Patient Tobacco Use Status: Current everyday Tobacco user Tobacco use type: Cigarette Cigarette Packs Per Day: 1 e-Cigarette/Vaping Use: Currently Using Second Hand Smoke Exposure: No Substance Use Type: Marijuana service: No Current occupational status: employed Current occupational exposures/hazards: No Cognitive needs: No Hearing needs: No Vision needs: No Questionnaire PHQ-9 Over the last 2 weeks, how often have you been bothered by any of the following problems? 1. Little interest or pleasure in doing things: not at all 2. Feeling down, depressed, or hopeless: not at all 3. Trouble falling or staying asleep, or sleeping too much: not at all 4. Feeling tired or having little energy: not at all 5. Poor appetite or overeating: not at all 6. Feeling bad about yourself - or that you are a failure or have let yourself or your family down: not at all 7. Trouble concentrating on things, such as reading the newspaper or watching television: not at all 8. Moving or speaking so slowly that other people could have noticed. Or the opposite - being so fidgety or restless that you have been moving around a lot more than usual: not at all 9. Thoughts that you would be better off or of hurting yourself in some way: not at all Total score: 0 Depression Screening Interpretation: Negative Depression Screening Done: Yes 79131 - PHQ-9 Billing: Yes Source: Developed by Drs. Armaan Waters, Catrina James, Vince Ponce and colleagues, with an educational steve from [employer]. Thrive Questionnaire Date Thrive assessed: 06/27/25 I am a: Patient What is your living situation today?: I choose not to answer this question Within the past 12 months, did the food you bought not last and you didn't have the money to get more?: I choose not to answer this question Within the past 12 months, did you worry whether your food would run out before you got money to buy more?: I choose not to answer this question Do you have trouble paying for medicines?: I choose not to answer this question Do you have trouble getting transportation to medical appointments?: I choose not to answer this question Do you have trouble paying your heating and electricity bill?: I choose not to answer this question Do you have trouble taking care of your child, family member or friend?: I choose not to answer this question Do you have trouble with day-to-day activities such as bathing, preparing meals, shopping, managing finances, etc.?: I choose not to answer this question Are you currently unemployed and looking for a job?: I choose not to answer this question Are you interested in more education?: I choose not to answer this question Please select the resources that you would like help with: None Currently or been in a relationship where the following occur: I choose not to answer THRIVE Score: 0 AUDIT C Alcohol Use Questionnaire (AUDIT-C) 1. How often do you have a drink containing alcohol?: Never 3. How often do you have six or more drinks on one occasion?: Never Total Score: 0 Score Reviewed/Action Taken: Yes REGINA-7 AMB Questionnaire ERGINA-7 Date REGINA - 7 assessed: 06/27/25 Feeling nervous, anxious, or on edge: 0 = Not at all Not being able to stop or control worryin = Not at all Worrying too much about different things: 0 = Not at all Trouble relaxin = Not at all Being so restless that it is hard to sit still: 0 = Not at all Becoming easily annoyed or irritable: 0 = Not at all Feeling afraid as if something awful might happen: 0 = Not at all Total REGINA-7 score (0-4 normal; 5-9 mild; 10-14 moderate; 15-21 severe): 0 Source: Developed by Drs. Armaan Waters, Catrina James, Vince Ponce and colleagues, with an educational steve from [employer]. REGINA-7 Assessment Billing REGINA-7 Assessment Tool: REGINA-7 Assessment 06424 Physical exam (Primary Care) Vital Signs: Last Vital Signs Temp 97.1 F 06/27/25 12:36 Pulse 53 06/27/25 12:36 Resp 12 06/27/25 12:36 BP 98/66 06/27/25 12:36 Pulse Ox 100 06/27/25 12:36 Oxygen Delivery Method Room Air 06/27/25 12:36 BMI result Body Mass Index 36.8 BMI Assessment/Plan discussion: High BMI High, discussed plan: lifestyle Tobacco/Smoking Status: Tobacco use Status Tobacco use date assessed 06/27/25 06/27/25 12:37 Patient Tobacco Use Status Current everyday Tobacco 06/27/25 12:37 Tobacco use type Cigarette 06/27/25 12:37 e-Cigarette/Vaping Use Currently Using 06/27/25 12:37 Are you ready to quit: No Tobacco cessation counseling provided: Yes Items discussed: Nicotine replacement, QuitWorks and Other Relapse Prevention: discussed the importance of a supportive environment, discussed extending NRT, discussed negative mood or depression after quitting, weight gain after smoking is common and discussed dietary, exercise and/or lifestyle changes Number of minutes spent counselin CPT code: 29881 - 4-10 Minutes PHQ-9: PHQ-9 Score PHQ-9: Total score 0 06/27/25 12:37 Depression Screening Interpretation: Negative Thrive Assessment: Date of Thrive Assessment Date Thrive assessed 06/27/25 06/27/25 12:37 Currently or been in a relationship where the following occur: I choose not to answer Coding Level of Care Code Est Pt Prev Care 18-39y([id number]) Diagnoses Encounter for general adult medical examination without abnormal findings Z00.00 Vitamin D deficiency E55.9 Microcytic normochromic anemia D50.9 Family hx-breast malignancy Z80.3 Family hx of ovarian malignancy Z80.41 Other chronic back pain M54.89; G89.29 Back pain location: back pain in other location Tobacco dependence with current use F17.200 Laboratory exam ordered as part of routine general medical examination Z00.00 Obesity (BMI 30-39.9) E66.9 Additional Codes REGINA-7 Assessment Billing - REGINA-7 Assessment Tool: REGINA-7 Assessment 61097 ([id number]) PHQ-9 - 05066 - PHQ-9 Billing: Yes ([id number]) Vital Signs *Quality* - CPT code: 27347 - 4-10 Minutes ([id number]) Assessment & Plan Assessment & Plan (1) Encounter for general adult medical examination without abnormal findings: Onset Date: ~06/27/25 Code(s): Z00.00 - Encounter for general adult medical examination without abnormal findings Category: Medical (2) Vitamin D deficiency: Code(s): E55.9 - Vitamin D deficiency, unspecified Category: Medical (3) Microcytic normochromic anemia: Code(s): D50.9 - Iron deficiency anemia, unspecified Category: Medical (4) Family hx-breast malignancy: Code(s): Z80.3 - Family history of malignant neoplasm of breast Category: Medical (5) Family hx of ovarian malignancy: Code(s): Z80.41 - Family history of malignant neoplasm of ovary Category: Medical (6) Chronic back pain: Code(s): M54.9 - Dorsalgia, unspecified; G89.29 - Other chronic pain Category: Medical Qualifiers: Back pain location: back pain in other location Qualified Code(s): M54.89 - Other dorsalgia; G89.29 - Other chronic pain (7) Tobacco dependence with current use: Comment: Smoking Cessation How to Quit There are a lot of ways to quit smoking and many resources to help you. Family members, friends, and co-workers may be supportive or encouraging, but to be successful the desire and commitment to quit must be your own. Most people who have been able to successfully quit smoking made at least one unsuccessful attempt in the past. Try not to view past attempts to quit as failures, but rather as learning experiences. Stopping smoking or using smokeless tobacco is difficult, but anyone can do it. Know the symptoms to expect when you stop. Common symptoms include: ? An intense craving for nicotine ? Anxiety, tension, restlessness, frustration, or impatience ? Difficulty concentrating ? Drowsiness or trouble sleeping, as well as bad dreams and nightmares ? Drowsiness and trouble sleeping ? Headaches ? Increased appetite and weight gain ? Irritability or depression How severe your symptoms are depends on how long you smoked and how many cigarettes you smoked each day. Feel ready to quit? ? First and foremost, set a quit date and quit completely on that day. Before your quit date, you may begin reducing your cigarette use. But remember, there is no safe level of cigarette smoking. ? List the reasons why you want to quit. Include both short- and long-term benefits. ? Identify the times you are most likely to smoke. For example, do you tend to smoke when feeling stressed or down? When out at night with friends? While drinking coffee or alcohol? When bored? While driving? Right after a meal or sex? During a work break? While watching TV or playing cards? When you are with other smokers? ? Let all of your friends, family, and co-workers know of your plan to stop smoking and your quit date. Just being aware that they know what you're going through can be helpful, especially when you are grumpy. ? Get rid of all your cigarettes just before the quit date, and clean out anything that smells like smoke, such as clothes and furniture. Make a plan about what you will do instead of smoking at those times when you are most likely to smoke. ? Be as specific as possible. For example, drink tea instead of coffee -- tea may not trigger the desire for a cigarette. Or, take a walk when you feel stressed. ? Remove ashtrays and cigarettes from the car. Place pretzels or hard candies there instead. Pretend-smoke with a straw. ? Find activities that focus your hands and mind but are not taxing or fattening. Computer games, solitaire, knitting, sewing, and crossword puzzles may help. ? If you normally smoke after eating, find other ways to end a meal. Play a tape or CD, eat a piece of fruit, get up and make a phone call, or take a walk (a good distraction that also barbosa calories). Make other changes in your lifestyle. ? Change your daily schedule and habits. Eat at different times or eat several small meals instead of three large ones. Sit in a different chair or even a different room. ? Satisfy your oral habits by eating celery or other low-calorie snack, chewing sugarless gum, or sucking on a cinnamon stick. ? Go to public places and restaurants where smoking is prohibited or restricted. ? Eat regular meals and don't eat too much candy or sweet things. ? Get more exercise. Take walks or ride a bike. Exercise helps relieve the urge to smoke. Set short-term quitting goals and reward yourself when you meet them. ? Every day, put the money you normally spend on cigarettes in a jar. Then buy something pleasurable after a period of time. ? Try not to think about all the days ahead you will need to avoid smoking. Take it one day at a time. ? Even one puff or one cigarette will make your desire for more cigarettes even stronger. However, it is normal to make mistakes. So even if you have one cigarette, you don't need to take the next one. Other tips to help you quit smoking and stick to it: ? Enroll in a smoking cessation program (hospitals, health departments, community centers, and work sites often offer programs). Learn about self-hypnosis or other techniques. ? Ask your health care provider about prescription medications that are safe and appropriate for you. ? Find out about nicotine patches, gum, and sprays. The [place] [employer]'s web site -- www.cancer.org -- is an excellent resource for smokers who are trying to quit, and the [employer] [place] [employer] can help some smokers kick the habit. Above all, don't get discouraged if you aren't able to quit smoking the first time. Nicotine addiction is a hard habit to break. Try something different next time. Develop new strategies, and try again. Many people take several attempts to finally kick the habit. Code(s): F17.200 - Nicotine dependence, unspecified, uncomplicated Category: Medical (8) Laboratory exam ordered as part of routine general medical examination: Code(s): Z00.00 - Encounter for general adult medical examination without abnormal findings Category: Medical (9) Obesity (BMI 30-39.9): Code(s): E66.9 - Obesity, unspecified Category: Medical Plan . Orders: Orders Hemoglobin A1c Today Z00.00 - Encounter for general adult medical examination without abnormal findings Comprehensive Met. Panel Today Z00.00 - Encounter for general adult medical examination without abnormal findings Lipid Panel Today Z00.00 - Encounter for general adult medical examination without abnormal findings Medications: New clindamycin phosphate 1% 1 appl topical BEDTIME 30 grams 2RF Patient Instructions: Health screenings for women You should visit your health care provider from time to time, even if you are healthy. The purpose of these visits is to: Screen for medical issues Assess your risk for future medical problems Encourage a healthy lifestyle Update vaccinations and other preventive care services Help you get to know your provider in case of an illness Information Even if you feel fine, you should still see your provider for regular checkups. These visits can help you avoid problems in the future. For example, the only way to find out if you have high blood pressure is to have it checked regularly. High blood sugar and high cholesterol levels also may not have any symptoms in the early stages. A simple blood test can check for these conditions. There are specific times when you should see your provider or receive specific health screenings. The [place] Preventive Services Task Force publishes a list of recommended screenings. Below are screening guidelines for women ages 18 to 39. BLOOD PRESSURE SCREENING Your blood pressure should be checked at least once every 3 to 5 years if: Your blood pressure is in the normal range (top number less than 120 mm Hg and bottom number less than 80 mm Hg) You don't have risk factors for high blood pressure Ask your provider if you need your blood pressure checked more often if: The top number is 120 to 129 mm Hg or the bottom number is 70 to 79 mm Hg You have diabetes, heart disease, kidney problems, are overweight, or have certain other health conditions You have a first-degree relative with high blood pressure You are Black You had high blood pressure during a If the top number is 130 mm Hg or greater or the bottom number is 80 mm Hg or greater, this is considered stage 1 hypertension. Schedule an appointment with your provider to learn how you can reduce your blood pressure. Watch for blood pressure screenings in your area. Ask your provider if you can stop in to have your blood pressure checked. BREAST CANCER SCREENING Experts do not agree about the benefits of breast self-exams in finding breast cancer or saving lives. Talk to your provider about what is best for you. A screening mammogram is not recommended for most women under age 40. Your provider may discuss and recommend mammograms, MRI scans, or ultrasounds if you have an increased risk for breast cancer, such as: A mother or sister who had breast cancer at a young age (most often starting screening earlier than the age the close relative was diagnosed) You carry a high-risk genetic marker CERVICAL CANCER SCREENING Cervical cancer screening should start at age 21 years unless your provider advises otherwise. After the first test: Women ages 21 through 29 should have a Pap test every 3 years. Exoprts do not agree on whether HPV testing is recommended for this age group. Women ages 30 through 65 should be screened with either a Pap test every 3 years or the HPV test every 5 years or both tests every 5 years (called cotesting ). Women who have been treated for precancer (cervical dysplasia) should continue to have Pap tests for 20 years after treatment or until age 65, whichever is longer. If you have had your uterus and cervix removed (total hysterectomy), and you have not been diagnosed with cervical cancer or precancer (high grade cervical neoplasia), you do not need cervical cancer screening. CHOLESTEROL SCREENING Cholesterol screening should begin at: Age 45 for women with no known risk factors for coronary heart disease Age 20 for women with known risk factors for coronary heart disease Repeat cholesterol screening should take place: Every 5 years for women with normal cholesterol levels More often if changes occur in lifestyle (including weight gain and diet) More often if you have diabetes, heart disease, kidney problems, or certain other conditions DIABETES SCREENING You should be screened for diabetes starting at age 35 and then repeated every 3 years if you have no risk factors for diabetes. Screening may need to start earlier and be repeated more often if you have other risk factors for diabetes, such as: You have a first degree relative with diabetes. You are overweight or have obesity. You have high blood pressure, prediabetes, or a history of heart disease. Screening for diabetes should be done if you are planning to become and you are overweight and have other risk factors such as high blood pressure. DENTAL EXAM Go to the dentist once or twice every year for an exam and cleaning. Your dentist will evaluate if you need more frequent visits. EYE EXAM Have an eye exam every 5 to 10 years before age 40. If you have vision problems, have an eye exam every 2 years or more often if recommended by your provider. You should have an eye exam that includes an examination of your retina (back of your eye) at least every year if you have diabetes. IMMUNIZATIONS Commonly needed vaccines include: Flu shot: get one every year. COVID-19 vaccine: ask your provider what is best for you. Tetanus-diphtheria and acellular pertussis (Tdap) vaccine: have one at or after age 19 as one of your tetanus-diphtheria vaccines if you did not receive it as an adolescent. Tetanus-diphtheria: have a booster (or Tdap) every 10 years. Varicella vaccine: receive 2 doses if you never had chickenpox or the varicella vaccine. Hepatitis B vaccine: receive 2, 3, or 4 doses, depending on your exact circumstances. Measles, mumps, and rubella (MMR) vaccine: receive 1 to 2 doses if you are not already immune to MMR. Your provider can tell you if you are immune. Ask your provider about the human papillomavirus (HPV) vaccine if: You have not received the HPV vaccine in the past You have not completed the full vaccine series (you should catch up on this shot) Ask your provider if you should receive other immunizations if you have certain health problems that increase your risk for some diseases such as pneumonia. INFECTIOUS DISEASE SCREENING Women who are sexually active should be screened for chlamydia and gonorrhea up until age 25. Women 25 years and older should be screened for chlamydia and gonorrhea if at high risk. Screening for hepatitis C: All adults ages 18 to 79 should get a one-time test for hepatitis C. people should be screened at every . Screening for human immunodeficiency virus (HIV): All people ages 15 to 65 should get a one-time test for HIV. Depending on your lifestyle and medical history, you may also need to be screened for infections such as syphilis and HIV, as well as other infections. PHYSICAL EXAM All adults should visit their provider from time to time, even if they are healthy. The purpose of these visits is to: Screen for disease Assess your risk of future medical problems Encourage a healthy lifestyle Update your vaccinations and other preventive care services Maintain a relationship with a provider in case of an illness Your height, weight, and BMI should be checked at every exam. During your exam, your provider may ask you about: Depression and anxiety Diet and exercise Alcohol and tobacco use Safety issues, such as using seat belts, smoke detectors, and intimate partner violence Your medicines and risk for interactions SKIN SELF-EXAM Your provider may check your skin for signs of skin cancer, especially if you're at high risk, such as if you: Have had skin cancer before Have close relatives with skin cancer Have a weakened immune system OTHER SCREENING Talk with your provider about colon cancer screening if you have a strong family history of colon cancer or polyps, or if you have had inflammatory bowel disease or polyps yourself. Routine bone density screening of women under 40 is not recommended.
[2025-06-27 12:36] VITALS: BP 98/66; PULSE 53; RESP 12; TEMP 36.2; O2SAT 100; BMI 36.8
== END 2025-06-27 12:59 | disposition home or self-care (01) ==
LOC: HO.HMCFM 12:31
PROVIDERS: PCP Physician Assistant; Visit Provider Nurse Practitioner Family
DX: Z00.00 Encounter for general adult medical examination without abnormal findings (principal); E55.9 Vitamin D deficiency, unspecified; E66.9 Obesity, unspecified; Z68.36 Body mass index [BMI] 36.0-36.9, adult; D50.9 Iron deficiency anemia, unspecified; Z80.3 Family history of malignant neoplasm of breast; Z80.41 Family history of malignant neoplasm of ovary; M54.89 Other dorsalgia; G89.29 Other chronic pain; F17.200 Nicotine dependence, unspecified, uncomplicated